=== PATIENT | male | born 1995 | race Native Hawaiian/Other Pacific Islander ===

== ENCOUNTER 2017-11-13 09:41 | Observation (INO) | payer BC, OTHER ==
[~2017-11-13] VITALS: Ht 175.3 cm; Wt 89.6 kg
[2017-11-13 10:31] LABS: PLATELET COUNT 301 K/uL (142-355)
[2017-11-13 10:46] VITALS: BP 128/74; TEMP 99; Ht 175.3 cm; Wt 89.6 kg
[2017-11-13 11:28] LABS: POTASSIUM 3.6 mmol/L (3.6-5.2); SODIUM 138 mmol/L (136-145)
[2017-11-13 16:00] VITALS: BP 111/65; TEMP 101.4
[2017-11-13 20:00] VITALS: BP 120/62; TEMP 98.9
[2017-11-14] VITALS: BP 110/90; TEMP 97.8
[2017-11-14 04:00] VITALS: BP 112/60; TEMP 98.1
[2017-11-14 05:04] LABS: PLATELET COUNT 239 K/uL (142-355)
[2017-11-14 05:32] LABS: POTASSIUM 3.5 mmol/L (3.6-5.2); SODIUM 138 mmol/L (136-145)
[2017-11-14 08:00] VITALS: BP 117/54; TEMP 97.5
[2017-11-14] MEDS ORDERED: METR250T19 PO (10:29)
[2017-11-14] MEDS ORDERED: LEVO250T2 PO (10:29)
== END 2017-11-14 11:00 | disposition home or self-care (01) ==
LOC: MED/SURG 09:41
PROVIDERS: Family Medicine; ADMIT Nurse Practitioner
DX: R10.13 Epigastric pain (principal); M79.1 Myalgia; E86.0 Dehydration; A08.8 Other specified intestinal infections
CPT/HCPCS: 36415; 80053; 81000; 82150; 82728; 82747; 83516; 83540; 83550; 83690; 83735; 85027; 85651; 86140; 86255; 86318; 86671; 87015; 87045; 87081; 87205; 87324; 87328; 87329; 87449; 87804; 87880; 87899; 96365; 96366; 99220; G0378; G0379; J1956; J2405; Q9963

== ENCOUNTER 2022-08-18 11:09 | Outpatient (CLI) | payer BC ==
[~2022-08-18 11:09] MED LIST: LEVO250T2 PO; METR250T19 PO
== END 2022-08-18 20:33 | disposition home or self-care (01) ==
LOC: US 11:09
PROVIDERS: ATTEND Nurse Practitioner
DX: N50.812 Left testicular pain (principal)